=== PATIENT | male | born 1985 | race Caucasian/White ===

== ENCOUNTER 2018-05-05 22:31 | Emergency (ER) | payer SELFPAY ==
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
--- NOTE | 2018-05-08 11:28 | CT ---
Head CT Technique: Multiple axial sections through the brain were obtained. Intravenous contrast was not utilized. Comparison: No previous intracranial imaging. Findings: Ventricles along the basal cisterns and sulci over the convexities are within normal limits for the patient's age. No abnormal parenchymal densities are seen. No evidence of intracranial hemorrhage. No midline shift or mass effect is seen. Mild soft tissue swelling seen with the right frontal scalp. Small amount of soft tissue air seen within this area of soft tissue swelling compatible with skin injury. Partially visualized left facial swelling is also seen. Bone window settings were reviewed which show no acute calvarial abnormality. Visualized sinuses are clear. Impression: 1. Soft tissue swelling and a small amount of soft tissue air within the right frontal scalp. Left facial swelling also partially visualized. 2. No acute intracranial abnormality is seen. No acute skull fracture is identified. Diagnostic code #2 I agree with preliminary report from [facility], finalized at 05/06/18, 12:33 AM Central Time
== END 2018-05-06 00:46 | disposition home or self-care (01) ==
LOC: JD.ED 22:31
DX: S06.0X1A Concussion with loss of consciousness of 30 minutes or less, initial encounter (principal); S09.90XA Unspecified injury of head, initial encounter; S01.81XA Laceration without foreign body of other part of head, initial encounter; F17.210 Nicotine dependence, cigarettes, uncomplicated; X95.9XXA Assault by unspecified firearm discharge, initial encounter
CPT/HCPCS: 70450; 70450-26; 99284; 99285-25

== ENCOUNTER 2018-06-17 15:49 | Emergency (ER) | payer BC ==
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
[2018-06-17] MEDS ORDERED: Sodium Chloride 0.9% 1,000 ML IV SCH (16:30)
[2018-06-17] MEDS ORDERED: Diphtheria/Tetanus Toxoids,Adult (Td) 0.5 ML Syringe IM ONE (16:39)
[2018-06-17] MEDS ORDERED: ceFAZolin 2 GM in Premix Bag 1 BAG IV ONE (16:39)
[2018-06-17] MEDS ORDERED: HYDROmorphone 0.5 MG/0.5 ML SYRINGE IVPUSH STA (17:21)
[2018-06-17] MEDS ORDERED: Potassium Chloride 10 MEQ in Premix Bag 1 BAG IV STA (17:33)
[2018-06-17] MEDS ORDERED: Magnesium Sulfate/Water 2 GM in Premix Bag 1 BAG IV STA (17:53)
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
--- NOTE | 2018-06-21 06:52 | CT ---
CT chest Multiple axial sections were obtained from above the lung apices inferiorly through the lung bases. Intravenous contrast was utilized. Comparison: No prior chest CT, previous chest x-ray of 06/17/18. Findings: Displaced left clavicle fracture is seen which is mildly comminuted. Mildly displaced fracture is seen within the left first rib with nondisplaced fracture seen within the right second rib. Nondisplaced anterior rib fractures are seen within the left second through seventh ribs. Mildly displaced posterior rib fracture seen within the left 10th rib. Thoracic spine shows no compression deformities. Reconstructed sagittal images shows no sternal fracture. Very minimal pneumothorax is seen inferiorly within left lung base. No additional pneumothorax is seen. Very small parenchymal density noted within the right middle lobe most likely due to minimal contusion. Similar findings are seen within the lingula on the opposite side also likely representing minimal contusion. Lungs otherwise are clear. No pericardial thickening is seen. Mediastinum and hilar regions show no adenopathy or mass. Impression: 1. Multiple rib fractures as described above. Displaced left clavicle fracture with comminution. 2. Minimal pulmonary contusions within the right middle lobe and lingula. 3. No additional abnormality is identified. Diagnostic code #5 I agree with preliminary report from [facility], finalized at 06/17/18, 5:[address] abdomen and pelvis Technique: Multiple axial sections were obtained from above the dome of the diaphragm inferiorly through the pubic symphysis. Intravenous contrast was utilized. No oral contrast has been given. Comparison: No previous CT abdomen or pelvis exam was obtained. Findings: Minimal low density area is seen within the central anterior liver. Minimal liver contusion or internal laceration is possible. No discrete laceration to the liver surface is seen. No additional abnormality of it is appreciated within the liver. Minimal soft tissue density seen off the superior spleen presumably due to blood. No discrete splenic laceration is seen. Kidneys show symmetric enhancement. Small low density findings seen within the mid to upper right kidney which is felt compatible with minimal cyst measuring less than 1 cm. Kidneys otherwise are unremarkable. Pancreas is normal. Gallbladder contains no calcified gallstones. Aorta shows no aneurysmal dilatation. No retroperitoneal adenopathy or mesenteric abnormalities are seen. No pelvic mass or adenopathy is seen. No free fluid or inflammatory change is seen. Bone window settings show no discrete fracture within the lumbar spine or pelvis. Intramedullary gm is partially visualized within the right femur. Impression: 1. Slight low density finding within the mid right anterior liver most likely due to minimal contusion or possibly internal laceration which does not extend to the liver surface. This most likely correlates to a grade 2 injury. 2. Minimal soft tissue density off the upper spleen likely representing small amount of blood but no discrete splenic laceration is seen. 3. Other incidental findings. Diagnostic code #3 I agree with preliminary report from [facility], finalized at 06/17/18, 5:55 PM Central Time
== END 2018-06-17 18:40 ==
LOC: JD.ED 15:49
DX: S36.00XA Unspecified injury of spleen, initial encounter (principal); S36.119A Unspecified injury of liver, initial encounter; S27.0XXA Traumatic pneumothorax, initial encounter; S27.321A Contusion of lung, unilateral, initial encounter; S22.43XA Multiple fractures of ribs, bilateral, initial encounter for closed fracture; S42.002A Fracture of unspecified part of left clavicle, initial encounter for closed fracture; S61.401A Unspecified open wound of right hand, initial encounter; F10.129 Alcohol abuse with intoxication, unspecified; Y90.7 Blood alcohol level of 200-239 mg/100 ml; E87.6 Hypokalemia; E87.2 Acidosis; R74.0 Nonspecific elevation of levels of transaminase and lactic acid dehydrogenase [LDH]; F17.210 Nicotine dependence, cigarettes, uncomplicated; S40.812A Abrasion of left upper arm, initial encounter; S40.811A Abrasion of right upper arm, initial encounter; S00.81XA Abrasion of other part of head, initial encounter; V29.49XA Motorcycle driver injured in collision with other motor vehicles in traffic accident, initial encounter
CPT/HCPCS: 36415; 51701; 70450; 71045; 71260; 72125; 74177; 80053; 80306; 81001; 85007; 85027; 85610; 85730; 96365; 96367; 96375; 99285; G0390; G0480; J0690; J1170; J3480; J7040; J3475